=== PATIENT | female | born 1990 | race Caucasian/White ===

== ENCOUNTER 2017-07-24 05:30 | Day surgery (SDC) | payer OTHER ==
[2017-07-24] MEDS ORDERED: Adacel (T-DAP) 0.5 ML VIAL ONE (09:15)
[2017-07-24] MEDS ORDERED: Morphine 4 MG/ML VIAL ONE ×2 (09:34→10:37)
[2017-07-24] MEDS ORDERED: Ondansetron HCl/PF 4 MG/2 ML Vial ONE ×3 (09:34→15:28)
[2017-07-24 09:49] LABS: #Eosinphils 0.3 thou/uL (0.0-0.7); #Lymphocytes 2.3 thou/uL (1.20-3.40); #Monocytes 0.5 thou/uL (0.11-0.59); #Neutrophils 7.9 thou/uL (1.40-6.50); %Basophils 0.4 % (0.0-1.0); %Eosinophils 2.3 % (0.0-10.0); %Lymphocytes 20.9 % (21.0-51.0); %Monocytes 4.6 % (0.0-10.0); %Neutrophils 71.7 % (42.0-75.0); Hemoglobin 13.6 g/dL (12.0-16.0); Mean Corpuscular HGB CONC 34.3 g/dL (32.0-36.0); Mean Corpuscular Hemoglobin 31.9 pg (27.0-31.0); Mean Corpuscular Volume 93.2 fl (81.0-99.0); Mean Platelet Volume 8.4 fL (7.4-10.4); Platelet Count 215 thou/uL (130-400); RBC Distribution Width 11.2 % (11.5-14.5); Red Blood Cell (RBC) Count 4.27 mill/uL (4.20-5.40)
[2017-07-24 10:05] LABS: Bilirubin Negative (Negative); Blood, Urine Negative (Negative); Clarity CLEAR (Clear); Glucose, Urine (Dipstick) Negative (Negative); Leukocyte Negative (Negative); Nitrite Negative (Negative); Protein, Urine (Dipstick) Negative (Neg-Trace); Specific Gravity, Urine 1.024 (1.002-1.036); Urobilinogen 0.2 mg/dL (0.2-1.0)
[2017-07-24 10:06] LABS: Pregnancy Test - Urine (BHCG) Negative (Negative); Pregu Control Background? CLEAR/WHITE (CLR/WHITE); Pregu Control Bar Appear? YES (CONTROL BAR); Specific Gravity 1.024 (1.002-1.036)
[2017-07-24 10:08] LABS: ALT (SGPT) 22 U/L (8-55); AST (SGOT) 23 U/L (5-34); Albumin 4.2 g/dL (3.5-5.0); Alcohol 106 mg/dL (Less than 10); Alkaline Phosphatase 45 U/L (40-150); Anion Gap 12 mmol/L (10-20); BUN (Urea Nitrogen) 11 mg/dL (7.0-18.7); Bilirubin, Total 0.3 mg/dL (0.2-1.2); Calc. Creatinine Clearance 0 mL/min (70-130); Carbon Dioxide 26 mmol/L (22-29); Chloride 106 mmol/L (98-107); Estimated GFR-MDRD Greater than 90; Globulin 2.3 g/dL (2.4-3.5); Glucose 97 mg/dL (70-105); Potassium 3.8 mmol/L (3.5-5.1); Protein, Total 6.5 g/dL (6.0-8.3); Sodium 140 mmol/L (136-145)
[2017-07-24] MEDS ORDERED: HYDROmorphone 0.5 MG/0.5 ML SYRINGE ONE (11:08)
[2017-07-24] MEDS ORDERED: Promethazine HCl 25 MG/ML VIAL ONE (11:56)
[2017-07-24] MEDS ORDERED: CEFAZOLIN/Water 2 GM/20 ML SYRINGE ONE (12:04)
[2017-07-24] MEDS ORDERED: Fentanyl 250 MCG/5 ML VIAL ONE ×2 (12:51→14:43)
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
[2017-07-24] MEDS ORDERED: Bupivacaine HCl 0.5%/Epinephrine 1:200,000/PF 30 ml Vial ONE (13:33)
[2017-07-24] MEDS ORDERED: Lidocaine 1% PF 5 ML VIAL ONE (15:28)
[2017-07-24] MEDS ORDERED: Dexamethasone 20 MG/5 ML VIAL ONE (15:28)
[2017-07-24] MEDS ORDERED: Propofol 200 MG/20 ML VIAL ONE (15:28)
[2017-07-24] MEDS ORDERED: Ketorolac Tromethamine 30 MG/ML VIAL ONE (15:28)
[2017-07-24] MEDS ORDERED: HYDROcodone/Acetaminophen 5/325 mg Tablet ONE (15:42)
--- NOTE | 2017-07-24 16:26 | OP ---
PREOPERATIVE DIAGNOSIS: Intraarticular distal radius fracture, left. POSTOPERATIVE DIAGNOSIS: Intraarticular distal radius fracture, left. SURGEON: Mariano Tillman M.D. MINIATURE TRAIN DRIVER: None. BLOOD LOSS: Minimal. SPECIMEN: None. DRAINS: None. COMPLICATIONS: None. IMPLANTS USED: Synthes variable angle distal radius plate. DESCRIPTION OF PROCEDURE: The patient was taken to the operating room where general anesthesia was i nduced. Left arm was prepped and draped in the usual sterile fashion. After exsanguination of tourn iquet to 250 mmHg, I made a FCR tendon sheath approach. Fracture was identified. Irrigation was per formed to remove soft tissue from the margins. Fracture was anatomically reduced. A Synthes plate w as applied and screws inserted in the usual technique. X-rays were obtained which showed appropriate length of screws and appropriate reduction. Tourniquet was released. Irrigation performed. Hemost asis obtained. Subcutaneous tissue closed with 2-0 Vicryl, the skin was closed with narayan. I did use Marcaine and the skin. Sterile dressings applied.
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
--- NOTE | 2017-07-24 18:09 | RAD ---
INTRAOPERATIVE IMAGING OF LEFT WRIST: Date: 07-24-17 Comparison: 07-24-17 History: Fracture, status post ORIF. FINDINGS: Prior imaging demonstrated fractures of the distal left ulna including the ulnar styloid as well as t he distal left radius. Four provided intraoperative images demonstrate placement of a volar screw and plate fixation associated with the left radius. There is normal alignment at the radial fracture site. Stable nondisplaced distal ulnar fracture and ulnar styloid fracture. IMPRESSION: ORIF as above. POS: [facility]
== END 2017-07-24 17:00 | disposition home or self-care (01) ==
LOC: ERS 05:30 → SDC 11:00
PROVIDERS: ATTEND Orthopaedic Surgery
PROC: 0PSJ04Z Reposition Left Radius with Internal Fixation Device, Open Approach (ICD-10-PCS; principal; 2017-07-24)
DX: S52.572A Other intraarticular fracture of lower end of left radius, initial encounter for closed fracture (principal); S52.202A Unspecified fracture of shaft of left ulna, initial encounter for closed fracture; F41.9 Anxiety disorder, unspecified; V47.5XXA Car driver injured in collision with fixed or stationary object in traffic accident, initial encounter
CPT/HCPCS: 76001; 80053; 80307; 81003; 81025; 85025; 90715; 93005; A4353; C1713; J0670; J1100; J1170; J1885; J2001; J2270; J2405; J2550; J2704; J3010

== ENCOUNTER 2017-07-25 12:18 | Emergency (ER) | payer OTHER | END 2017-07-25 15:02 | disposition home or self-care (01) | LOC: ERS 12:18 | DX: M96.841 Postprocedural hematoma of a musculoskeletal structure following other procedure (principal); F41.9 Anxiety disorder, unspecified; F98.8 Other specified behavioral and emotional disorders with onset usually occurring in childhood and adolescence | CPT/HCPCS: 99283 ==

== ENCOUNTER 2018-11-21 08:56 | Emergency (ER) | payer OTHER ==
--- NOTE | 2018-11-21 10:05 | ULT ---
Pelvic ultrasound 11/21/2018 COMPARISON: None HISTORY: Right lower quadrant pain TECHNIQUE: Multiplanar grayscale sonographic imaging of the pelvis with transabdominal and endovagina l probes obtained. The right ovary was assessed with color flow and spectral analysis. FINDINGS: The left ovary could not be visualized on this examination. Echogenic linear structure in the region of the endometrial canal is consistent with the patient's hi story of intrauterine device. This obscures the endometrium, which can thus not be accurately measured. The uterus measures 8.0 x 4.3 x 6.0 cm and demonstrates no evidence for mass. There is no free fluid noted in the pelvis. The right ovary measures 4.0 x 3.6 x 2.5 cm in demonstrates normal blood flow. There are multiple rig ht ovarian follicles. There is a small right ovarian cyst measuring 1.8 x 1.7 x 2.1 cm on the right. IMPRESSION: No acute findings. Right ovarian cyst. Left ovary could not be visualized.
--- NOTE | 2018-11-21 12:45 | CT ---
CT Abdomen Pelvis W Con HISTORY: Intermittent right lower quadrant pain COMPARISON: 06/30/[address] examination. FINDINGS: The lungs are clear of any infiltrative process. The liver and spleen show no focal abnormalities. The pancreas and gallbladder regions appear unremar kable. Right and left adrenal glands and right and left kidneys are normal in appearance. There is what appe ars be a small punctate nonobstructing right renal calculus seen in the midpole region of the kidney. There is no significant periaortic or mesenteric adenopathy. Lack of intra-abdominal fat does degrade detail. There is a moderate amount of stool present within the colon. CT of pelvis performed with contrast: An IUD is in place. The appendix is somewhat difficult to ident vikram but I see what I believe to be the air filled appendix which is normal in appearance. Follicles are seen involving the adnexa. IMPRESSION: 1. No CT evidence for appendicitis. 2. IUD in place. 3. Small punctate mid pole right renal calculus.
[2018-11-21] MEDS ORDERED: ISOVUE-370 76%-LOCM 1 ML ONE (13:54)
== END 2018-11-21 13:04 | disposition home or self-care (01) ==
LOC: ERS 08:56
DX: R10.31 Right lower quadrant pain (principal); F41.9 Anxiety disorder, unspecified; F98.8 Other specified behavioral and emotional disorders with onset usually occurring in childhood and adolescence
CPT/HCPCS: 74177; 76856; 93976; Q9966

== ENCOUNTER 2022-01-25 11:17 | Outpatient (CLI) | payer OTHER | END 2022-01-25 11:18 | disposition home or self-care (01) | LOC: RAD 11:17 | PROVIDERS: ATTEND Physician Assistant Surgical | DX: M48.54XA Collapsed vertebra, not elsewhere classified, thoracic region, initial encounter for fracture (principal) | CPT/HCPCS: 72072 ==

== ENCOUNTER 2022-02-12 08:52 | Emergency (ER) | payer OTHER ==
[2022-02-12] MEDS ORDERED: Iopamidol 370 76% 100 ML VIAL ONE (09:23)
[2022-02-12 10:02] LABS: #Basophils 0.1 thou/uL (0.0-0.2); #Eosinphils 0.2 thou/uL (0.0-0.7); #Lymphocytes 1.5 thou/uL (1.20-3.40); #Monocytes 0.4 thou/uL (0.11-0.59); #Neutrophils 3.7 thou/uL (1.40-6.50); %Basophils 1.1 % (0.0-1.0); %Eosinophils 3.3 % (0.0-10.0); %Lymphocytes 25.9 % (21.0-51.0); %Monocytes 6.1 % (0.0-10.0); %Neutrophils 63.7 % (42.0-75.0); Hemoglobin 13.4 g/dL (12.0-16.0); Mean Corpuscular HGB CONC 32.8 g/dL (32.0-36.0); Mean Corpuscular Hemoglobin 30.8 pg (27.0-31.0); Mean Corpuscular Volume 94.1 fL (78.0-98.0); Mean Platelet Volume 9.3 fL (7.4-10.4); Platelet Count 238 thou/uL (130-400); RBC Distribution Width 11.4 % (11.5-14.5); Red Blood Cell (RBC) Count 4.33 mill/uL (4.20-5.40); White Blood Cell (WBC) Count 5.7 thou/uL (4.8-10.8)
[2022-02-12 10:25] LABS: BHCG - Serum Negative (NEGATIVE); Pregs Control Background? CLEAR/WHITE (CLR/WHITE); Pregs Control Bar Appear? YES (CONTROL BAR)
[2022-02-12 10:37] LABS: ALT (SGPT) 13 U/L (8-55); AST (SGOT) 16 U/L (5-34); Albumin 4.2 g/dL (3.5-5.0); Alkaline Phosphatase 57 U/L (40-110); Anion Gap 12 mmol/L (10-20); BUN (Urea Nitrogen) 13 mg/dL (7.0-18.7); Bilirubin, Total 0.4 mg/dL (0.2-1.2); Calc. Creatinine Clearance 0 mL/min (70-130); Calcium 9.2 mg/dL (7.8-10.44); Carbon Dioxide 25 mmol/L (22-29); Chloride 105 mmol/L (98-107); Estimated GFR 106; Globulin 2.4 g/dL (2.4-3.5); Glucose 90 mg/dL (70-105); Potassium 3.8 mmol/L (3.5-5.1); Protein, Total 6.6 g/dL (6.0-8.3); Sodium 138 mmol/L (136-145)
[2022-02-12 17:39] LABS: Bilirubin Negative (Negative); Blood, Urine Negative (Negative); Clarity Clear (Clear); Glucose, Urine (Dipstick) Normal (Negative); Ketone, Urine Negative (Negative); Leukocyte Negative Leu/uL (Negative); Nitrite Negative (Negative); Protein, Urine (Dipstick) 20 mg/dL (Neg-Trace)
[2022-02-12 17:43] LABS: Specific Gravity, Urine 1.048 (1.002-1.036)
== END 2022-02-12 12:16 | disposition home or self-care (01) ==
LOC: ERS 08:52
DX: R07.89 Other chest pain (principal)
CPT/HCPCS: 36415; 71275; 80053; 81003; 84484; 84703; 85025; 93005; Q9967